=== PATIENT | male | born 1995 | race Caucasian/White ===

== ENCOUNTER 2022-02-15 08:21 | Emergency (ER) | payer BC, OTHER ==
[~2022-02-15] VITALS: Ht 175.3 cm; Wt 127.0 kg
--- OUTSIDE RECORDS SUMMARY | 2022-02-15 08:25 | XMS ---
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 Ankita has no Care Guidelines for this patient. Marvin VISIT COUNT (12 MO.) 1 [facility] Amanda TOTAL 1 NOTE: Visits indicate total known visits. ED/C VISIT TRACKING (12 MO.) 02/15/2022 08:21 [facility] [place] TYPE: Emergency COMPLAINT: - LOWER BACK PAIN INPATIENT VISIT TRACKING (12 MO.) No inpatient visits to display in this time frame [email or web address]
== END 2022-02-15 11:20 | disposition home or self-care (01) ==
LOC: ED 08:21
DX: N20.1 Calculus of ureter (principal)
CPT/HCPCS: 36415; 74176; 80053; 81001; 85025; 96374; 96375; 99284-25; J1885; J2270; J2405; J7030